=== PATIENT | male | born 1945 | race Caucasian/White ===

== ENCOUNTER 2019-01-18 08:54 | Inpatient (IN) | payer MEDICARE, OTHER ==
[~2019-01-18] VITALS: Ht 182.9 cm; Wt 118.9 kg
[~2019-01-18 08:54] MED LIST: ALLO300T PO; BACITRACIN 50,000 UNIT ONE; BUPIVACAINE/PF-EPI 0.5% 1:200K ONE; FELO10TA PO; FENO145T32 PO; GABA300C10 PO; OLME40TA12 PO; THROMBIN 20,000 UNIT VIAL TP ONE; TRAM50TA2 PO; TRANEXAMIC ACID 100 MG/ML, 10ML ONE; VANCOMYCIN 1,000 MG ONE
[2019-01-18] MEDS ORDERED: VANCOMYCIN PMX 1GM/200ML 200 ML IV STA (09:26)
[2019-01-18 09:27] VITALS: BP 97/65
[2019-01-18] MEDS ORDERED: SODIUM CHLORIDE 0.9% 1,000 ML IV SCH (09:36)
[2019-01-18] MEDS ORDERED: ACETAMINOPHEN 500 MG TABLET PO ONE (10:00)
[2019-01-18] MEDS ORDERED: GABAPENTIN 300 MG CAPSULE PO ONE (10:00)
[2019-01-18] MEDS ORDERED: MIDAZOLAM 1 MG/ML, 2ML ONE (10:20)
[2019-01-18] MEDS ORDERED: FENTANYL PF 250 MCG/5ML ONE ×2 (10:20→15:05)
[2019-01-18] MEDS ORDERED: PROPOFOL 50 ML ONE ×7 (10:20→16:45)
[2019-01-18] MEDS ORDERED: BACITRACIN 50,000 UNIT ONE (11:49)
[2019-01-18] MEDS ORDERED: THROMBIN 20,000 UNIT VIAL TP ONE (11:49)
[2019-01-18] MEDS ORDERED: TRANEXAMIC ACID 100 MG/ML, 10ML ONE ×2 (11:49)
[2019-01-18] MEDS ORDERED: BUPIVACAINE/PF-EPI 0.5% 1:200K ONE (11:49)
[2019-01-18] MEDS ORDERED: VANCOMYCIN 1,000 MG ONE (11:49)
[2019-01-18] MEDS ORDERED: hydrALAzine 20 MG/ML, 1ML IV PRN (12:30)
[2019-01-18] MEDS ORDERED: METOCLOPRAMIDE 5 MG/ML, 2ML IV PRN (12:30)
[2019-01-18] MEDS ORDERED: HYDROmorphone 2 MG/ML, 1ML IVPush PRN (12:30)
[2019-01-18] MEDS ORDERED: LABETALOL 5MG/ML, 20ML IV PRN ×2 (12:30→21:30)
[2019-01-18] MEDS ORDERED: MEPERIDINE/PF 25MG/0.5ML IVPush PRN (12:30)
[2019-01-18] MEDS ORDERED: OXYcodone 5 MG/5 ML ORAL.SOL UDC PO PRN (12:30)
[2019-01-18] MEDS ORDERED: LORazepam 2 MG/ML, 1ML IVPush PRN (12:30)
[2019-01-18] MEDS ORDERED: BUPIVACAINE/PF-EPI 0.5% 1:200K INFIL ONE (12:54)
[2019-01-18] MEDS ORDERED: FENTANYL PF 100 MCG/2ML ONE (17:58)
[2019-01-18] MEDS ORDERED: OXYcodone 5 MG/5 ML ORAL.SOL UDC ONE (17:58)
[2019-01-18] MEDS: FENTANYL PF 100 MCG/2ML IV PRN ×2 (18:03→18:23)
[2019-01-18] MEDS ORDERED: HYDROmorphone 1 MG/ML, 1ML AMP ONE (18:25)
[2019-01-18] MEDS ORDERED: ZOLPIDEM 5MG TABLET PO PRN (21:00)
[2019-01-18] MEDS ORDERED: PHARMACY MAY ADJ FOR RENAL FX MC PRN (21:00)
[2019-01-18] MEDS ORDERED: PROMETHAZINE 25 MG/ML, 1ML IM PRN (21:30)
[2019-01-18] MEDS ORDERED: DIPHENHYDRAMINE 50 MG CAPSULE PO PRN (21:30)
[2019-01-18] MEDS ORDERED: KETOROLAC 30 MG/1 ML IM PRN (21:30)
[2019-01-18] MEDS ORDERED: SODIUM CHLORIDE 0.9% 1,000 ML IV PRN (21:30)
[2019-01-18] MEDS ORDERED: DIPHENHYDRAMINE 50 MG/ML, 1ML IVPush PRN (21:30)
[2019-01-18] MEDS ORDERED: KETOROLAC 30 MG/1 ML IV ONE (21:30)
[2019-01-18] MEDS ORDERED: MAGNESIUM HYDROXIDE 8%, 30ML UDC PO PRN (21:30)
[2019-01-18] MEDS ORDERED: DEXAMETHASONE 4 MG/ML, 1ML IVPush PRN (21:30)
[2019-01-18] MEDS ORDERED: DIAZEPAM 5 MG TABLET PO PRN (21:30)
[2019-01-18] MEDS ORDERED: ONDANSETRON 2MG/ML, 2ML IV PRN (21:30)
[2019-01-18] MEDS ORDERED: morphine SULFATE 10 MG/ML, 1ML IV PRN (21:30)
[2019-01-18] MEDS ORDERED: BISACODYL 10 MG SUPP PR PRN (21:30)
[2019-01-18] MEDS ORDERED: DIPHENHYDRAMINE 50 MG/ML, 1ML IM PRN (21:30)
[2019-01-18] MEDS ORDERED: OXYcodone IR 5MG TABLET PO PRN (21:30)
[2019-01-18] MEDS ORDERED: DIAZEPAM 5 MG/ML, 2ML IV PRN (21:30)
[2019-01-18] MEDS ORDERED: LORazepam 1MG TABLET PO PRN (21:30)
[2019-01-18] MEDS ORDERED: ACETAMINOPHEN 500 MG TABLET PO PRN (21:30)
[2019-01-18] MEDS ORDERED: ACETAMINOPHEN 650 MG SUPP PR PRN (21:30)
[2019-01-18] MEDS: D5%-0.9% NACL+KCL 20MEQ 1,000 ML IV SCH (21:32)
[2019-01-18] MEDS: CEFAZOLIN PMX 1GM/50ML 50 ML IVPB SCH (21:32)
[2019-01-19] MEDS ORDERED: ACETAMINOPHEN 650 MG SUPP PR PRN (00:30)
[2019-01-19 00:46] VITALS: BP 105/70
[2019-01-19 05:26] LABS: BASOPHILS # (AUTO) 0.01 x10^3/uL (0-0.1); BASOPHILS % (AUTO) 0 % (0-1); EOSINOPHILS # (AUTO) 0.17 x10^3/uL (0-0.4); EOSINOPHILS % (AUTO) 2 % (1-7); LYMPHOCYTES % (AUTO) 7 % (22-44); MD NO; MEAN CORPUSCULAR HGB CONC 34.1 g/dL (33.2-36.2); MEAN CORPUSCULAR VOLUME 99.6 fL (81-97); MEAN PLATELET VOLUME 8.1 fL (7.4-10.4); MONOCYTES # (AUTO) 0.53 x10^3/uL (0.2-0.8); MONOCYTES % (AUTO) 6 % (2-9); NEUTROPHILS % (AUTO) 86 % (42-75); PLATELET COUNT 174 x10^3/uL (130-400); RED BLOOD COUNT 3.89 x10^6/uL (4.38-5.82); RED CELL DISTRIBUTION WIDTH 14.5 % (9.4-14.8)
[2019-01-19] MEDS: CEFAZOLIN PMX 1GM/50ML 50 ML IVPB SCH (05:35)
[2019-01-19] MEDS ORDERED: KETOROLAC 30 MG/1 ML IVPush PRN (06:00)
[2019-01-19 07:08] VITALS: BP 118/71
[2019-01-19] MEDS: ALLOPURINOL 300 MG TABLET PO SCH (08:37)
[2019-01-19] MEDS: GABAPENTIN 300 MG CAPSULE PO SCH ×2 (08:38→19:57)
[2019-01-19] MEDS: LOSARTAN 50MG TABLET PO SCH (08:40)
[2019-01-19] MEDS: FELODIPINE 10 MG PO SCH (08:41)
[2019-01-19] MEDS: SENNA/DOCUSATE TABLET PO SCH (08:42)
[2019-01-19] MEDS: FENOFIBRATE 54 MG TABLET PO SCH (08:43)
[2019-01-19] MEDS: D5%-0.9% NACL+KCL 20MEQ 1,000 ML IV SCH ×2 (08:47→17:44)
[2019-01-19] MEDS ORDERED: PHENYLEPHRINE 10 MG/ML ONE (12:18)
[2019-01-19] MEDS ORDERED: LIDOCAINE 2% 100MG/5ML SYRINGE ONE (12:18)
[2019-01-19] MEDS ORDERED: ROCURONIUM 10MG/ML,5ML ONE (12:18)
[2019-01-19] MEDS ORDERED: ONDANSETRON 2MG/ML, 2ML ONE (12:18)
[2019-01-19] MEDS ORDERED: DEXAMETHASONE 4 MG/ML, 1ML ONE (12:18)
[2019-01-19] MEDS ORDERED: SUCCINYLCHOLINE 20 MG/ML, 10ML ONE (12:18)
[2019-01-19 14:00] VITALS: BP 116/64
[2019-01-19 19:08] VITALS: BP 108/56
[2019-01-20 01:11] VITALS: BP 110/61
[2019-01-20] MEDS: D5%-0.9% NACL+KCL 20MEQ 1,000 ML IV SCH (03:30)
[2019-01-20 05:53] LABS: BASOPHILS # (AUTO) 0.02 x10^3/uL (0-0.1); BASOPHILS % (AUTO) 0 % (0-1); EOSINOPHILS # (AUTO) 0.04 x10^3/uL (0-0.4); EOSINOPHILS % (AUTO) 1 % (1-7); LYMPHOCYTES # (AUTO) 1.14 x10^3/uL (1-3.4); LYMPHOCYTES % (AUTO) 17 % (22-44); MD NO; MEAN CORPUSCULAR HEMOGLOBIN 34.3 pg (27.5-34.5); MEAN CORPUSCULAR HGB CONC 34.3 g/dL (33.2-36.2); MEAN CORPUSCULAR VOLUME 100.1 fL (81-97); MEAN PLATELET VOLUME 8.3 fL (7.4-10.4); MONOCYTES # (AUTO) 0.54 x10^3/uL (0.2-0.8); MONOCYTES % (AUTO) 8 % (2-9); NEUTROPHILS # (AUTO) 4.87 x10^3/uL (1.8-6.8); NEUTROPHILS % (AUTO) 74 % (42-75); PLATELET COUNT 146 x10^3/uL (130-400); RED BLOOD COUNT 3.38 x10^6/uL (4.38-5.82); RED CELL DISTRIBUTION WIDTH 14.6 % (9.4-14.8)
[2019-01-20] MEDS ORDERED: CEPH-368 PO (07:22)
[2019-01-20] MEDS ORDERED: HYDR-3307 PO (07:22)
[2019-01-20 07:54] VITALS: BP 132/72
[2019-01-20] MEDS: ALLOPURINOL 300 MG TABLET PO SCH (08:00)
[2019-01-20] MEDS: SENNA/DOCUSATE TABLET PO SCH (08:00)
[2019-01-20] MEDS: LOSARTAN 50MG TABLET PO SCH (08:01)
[2019-01-20] MEDS: GABAPENTIN 300 MG CAPSULE PO SCH (08:01)
[2019-01-20] MEDS: FELODIPINE 10 MG PO SCH (08:01)
[2019-01-20] MEDS: FENOFIBRATE 54 MG TABLET PO SCH (08:04)
== END 2019-01-20 10:25 | disposition home or self-care (01) | DRG 454 ==
LOC: ORIP 08:54 → 4NOR 20:30
PROVIDERS: ADMIT Orthopaedic Surgery Orthopaedic Surgery of the Spine; ATTEND Orthopaedic Surgery Orthopaedic Surgery of the Spine
PROC: 01NB0ZZ Release Lumbar Nerve, Open Approach (ICD-10-PCS; 2019-01-18)
PROC: 0ST20ZZ Resection of Lumbar Vertebral Disc, Open Approach (ICD-10-PCS; 2019-01-18)
PROC: 0SP004Z Removal of Internal Fixation Device from Lumbar Vertebral Joint, Open Approach (ICD-10-PCS; 2019-01-18)
PROC: 0SG707Z Fusion of Right Sacroiliac Joint with Autologous Tissue Substitute, Open Approach (ICD-10-PCS; 2019-01-18)
PROC: 07DR3ZZ Extraction of Iliac Bone Marrow, Percutaneous Approach (ICD-10-PCS; 2019-01-18)
PROC: 4A11X4G Monitoring of Peripheral Nervous Electrical Activity, Intraoperative, External Approach (ICD-10-PCS; 2019-01-18)
PROC: 4A11X4G Monitoring of Peripheral Nervous Electrical Activity, Intraoperative, External Approach (ICD-10-PCS; 2019-01-18)
PROC: BR1D1ZZ Fluoroscopy of Sacroiliac Joints using Low Osmolar Contrast (ICD-10-PCS; 2019-01-18)
PROC: 0SG00AJ Fusion of Lumbar Vertebral Joint with Interbody Fusion Device, Posterior Approach, Anterior Column, Open Approach (ICD-10-PCS; principal; 2019-01-18 11:00)
PROC: 0SG807Z Fusion of Left Sacroiliac Joint with Autologous Tissue Substitute, Open Approach (ICD-10-PCS; 2019-01-18 11:00)
DX: M43.16 Spondylolisthesis, lumbar region (principal); R71.0 Precipitous drop in hematocrit; M51.06 Intervertebral disc disorders with myelopathy, lumbar region; M51.16 Intervertebral disc disorders with radiculopathy, lumbar region; M46.1 Sacroiliitis, not elsewhere classified; F32.9 Major depressive disorder, single episode, unspecified; M48.061 Spinal stenosis, lumbar region without neurogenic claudication; M10.9 Gout, unspecified; I12.9 Hypertensive chronic kidney disease with stage 1 through stage 4 chronic kidney disease, or unspecified chronic kidney disease; N18.3 Chronic kidney disease, stage 3 (moderate); G89.29 Other chronic pain
CPT/HCPCS: 36415; 72100; 72202; 76000; 85025; C1713; G0378; J0690; J1100; J1885; J2250; J2270; J2405; J2704; J3010; J3370; C1762; C1763; C9362; J0330; J2370; J3480; J7030